=== PATIENT | male | born 1975 | race Caucasian/White ===

== ENCOUNTER 2023-01-05 11:57 | Inpatient (IN) | payer OTHER ==
[2023-01-05] MEDS ORDERED: FUROSEMIDE 40 MG/4 ML INJECTABLE VIAL IVPUSH ONE ×2 (12:32→17:52)
[2023-01-05] MEDS ORDERED: FUROSEMIDE 40 MG/4 ML INJECTABLE VIAL ONE (12:37)
[2023-01-05] MEDS ORDERED: DIPHTH,PERTUSS(ACELL),TET 0.5 ML DISP.SYRIN IM ONE ×2 (12:48→13:01)
[2023-01-05 13:12] LABS: VENOUS BASE EXCESS 0.9 mmol/L (-2-2); VENOUS O2 SATURATION 70.1 % (70-80); VENOUS PCO2 42.6 mmHg (38-52); VENOUS PH 7.402 (7.310-7.410)
[2023-01-05 13:15] LABS: BASO % 1.6 % (0-2.0); EOS % 1.3 % (0-4.5); HEMATOCRIT 40.2 % (35.4-49); HEMOGLOBIN 12.9 GM/dL (11.7-16.9); MCH 23.7 pg (25.7-33.7); MCHC 32.1 g/dl (32.0-35.9); MEAN CELL VOLUME 73.7 fl (80-96); MEAN PLT VOLUME 9.4 fl (7.5-11.1); MONO % 10.9 % (3.8-10.2); NEUT % 65.2 % (42.8-82.8); PLATELET COUNT 215 10^3/uL (134-434); RBC 5.45 M/mm3 (4.00-5.60); RDW 17.9 % (11.9-15.9); WHITE BLOOD COUNT 7.9 K/mm3 (4.0-10.0)
[2023-01-05 13:57] LABS: ALBUMIN 3.1 g/dl (3.4-5.0); CALCIUM 8.4 mg/dL (8.5-10.1)
[2023-01-05 13:58] LABS: BLOOD UREA NITROGEN 51.9 mg/dL (7-18)
[2023-01-05 14:02] LABS: TOT PROT 6.2 g/dl (6.4-8.2)
[2023-01-05] MEDS ORDERED: DEXTROSE 5%-0.45% SALINE 1,000 ML IV SCH (19:00)
[2023-01-05] MEDS: ATORVASTATIN CA 80 MG TABLET (FP) PO SCH (19:17)
[2023-01-05] MEDS: APIXABAN 5 MG TABLET PO SCH (22:47)
[2023-01-06 09:11] LABS: BASO % 0.7 % (0-2.0); EOS % 0.7 % (0-4.5); HEMATOCRIT 39.6 % (35.4-49); HEMOGLOBIN 12.7 GM/dL (11.7-16.9); LYMPH % 13.8 % (8-40); MCH 23.6 pg (25.7-33.7); MCHC 32.1 g/dl (32.0-35.9); MEAN CELL VOLUME 73.5 fl (80-96); MEAN PLT VOLUME 9.3 fl (7.5-11.1); MONO % 10.7 % (3.8-10.2); NEUT % 74.1 % (42.8-82.8); PLATELET COUNT 215 10^3/uL (134-434); RBC 5.38 M/mm3 (4.00-5.60); RDW 18.1 % (11.9-15.9); WHITE BLOOD COUNT 7.8 K/mm3 (4.0-10.0)
[2023-01-06 09:41] LABS: ALBUMIN 2.7 g/dl (3.4-5.0); BLOOD UREA NITROGEN 43.3 mg/dL (7-18); CALCIUM 7.7 mg/dL (8.5-10.1)
[2023-01-06 09:44] LABS: CREATININE 1.6 mg/dL (0.55-1.3)
[2023-01-06 09:46] LABS: BILIRUBIN,TOTAL 2.6 mg/dL (0.2-1); TOT PROT 5.4 g/dl (6.4-8.2)
[2023-01-06] MEDS: PANTOPRAZOLE 40 MG TABLET PO SCH (09:57)
[2023-01-06] MEDS: APIXABAN 5 MG TABLET PO SCH ×2 (09:57→21:52)
[2023-01-06] MEDS: FUROSEMIDE 40 MG/4 ML INJECTABLE VIAL IVPUSH SCH (09:57)
[2023-01-06] MEDS ORDERED: ENOXAPARIN NA (PORCINE) 40 MG/0.4 ML DISP.SYRIN SQ SCH (10:00)
[2023-01-06] MEDS ORDERED: ASPIRIN COATED 81 MG TABLET.EC PO SCH (10:00)
[2023-01-06] MEDS ORDERED: ONDANSETRON 4 MG/2 ML VIAL IVPUSH PRN (14:11)
[2023-01-06] MEDS: KCL 10 MEQ IVPB 10 MEQ/100 ML INFUS.BAG IVPB SCH ×3 (15:05→17:30)
[2023-01-06] MEDS: ATORVASTATIN CA 80 MG TABLET (FP) PO SCH (21:52)
[2023-01-07 07:41] LABS: BASO % 0.7 % (0-2.0); EOS % 3.3 % (0-4.5); HEMATOCRIT 40.9 % (35.4-49); LYMPH % 21.7 % (8-40); MCH 23.5 pg (25.7-33.7); MCHC 31.7 g/dl (32.0-35.9); MONO % 11.6 % (3.8-10.2); NEUT % 62.7 % (42.8-82.8); PLATELET COUNT 244 10^3/uL (134-434); RBC 5.53 M/mm3 (4.00-5.60); RDW 18.1 % (11.9-15.9); WHITE BLOOD COUNT 7.2 K/mm3 (4.0-10.0)
[2023-01-07 08:04] LABS: ALBUMIN 2.8 g/dl (3.4-5.0); BLOOD UREA NITROGEN 38.4 mg/dL (7-18)
[2023-01-07 08:07] LABS: CREATININE 1.5 mg/dL (0.55-1.3)
[2023-01-07 08:10] LABS: BILIRUBIN,TOTAL 2.7 mg/dL (0.2-1); TOT PROT 5.7 g/dl (6.4-8.2)
[2023-01-07] MEDS: PANTOPRAZOLE 40 MG TABLET PO SCH (09:52)
[2023-01-07] MEDS: APIXABAN 5 MG TABLET PO SCH ×2 (09:52→22:00)
[2023-01-07] MEDS: FUROSEMIDE 40 MG/4 ML INJECTABLE VIAL IVPUSH SCH (09:52)
[2023-01-07] MEDS ORDERED: CEFAZOLIN 1 GM in DEXTROSE 5%-WATER - 50 ML IVPB SCH (15:00)
[2023-01-07] MEDS: CEFAZOLIN 1 GM in DEXTROSE 5%-WATER - 50 ML IVPB SCH (16:50)
[2023-01-08] MEDS: CEFAZOLIN 1 GM in DEXTROSE 5%-WATER - 50 ML IVPB SCH ×3 (03:30→18:00)
[2023-01-08 09:03] LABS: BASO % 1.2 % (0-2.0); EOS % 3.1 % (0-4.5); HEMATOCRIT 42.1 % (35.4-49); HEMOGLOBIN 13.6 GM/dL (11.7-16.9); LYMPH % 27.1 % (8-40); MCH 23.6 pg (25.7-33.7); MCHC 32.4 g/dl (32.0-35.9); MEAN CELL VOLUME 72.8 fl (80-96); MEAN PLT VOLUME 8.7 fl (7.5-11.1); NEUT % 57.6 % (42.8-82.8); PLATELET COUNT 276 10^3/uL (134-434); RBC 5.78 M/mm3 (4.00-5.60); RDW 17.8 % (11.9-15.9); WHITE BLOOD COUNT 6.7 K/mm3 (4.0-10.0)
[2023-01-08 09:20] LABS: ALBUMIN 2.8 g/dl (3.4-5.0); BLOOD UREA NITROGEN 31.4 mg/dL (7-18)
[2023-01-08 09:21] LABS: CALCIUM 7.9 mg/dL (8.5-10.1)
[2023-01-08 09:24] LABS: CREATININE 1.3 mg/dL (0.55-1.3)
[2023-01-08 09:27] LABS: BILIRUBIN,TOTAL 2.7 mg/dL (0.2-1); TOT PROT 5.7 g/dl (6.4-8.2)
[2023-01-08] MEDS: APIXABAN 5 MG TABLET PO SCH ×2 (11:00→22:16)
[2023-01-08] MEDS: PANTOPRAZOLE 40 MG TABLET PO SCH (11:00)
[2023-01-08] MEDS: FUROSEMIDE 40 MG/4 ML INJECTABLE VIAL IVPUSH SCH (11:01)
[2023-01-08] MEDS ORDERED: POTASSIUM CHLORIDE ORAL LIQUID 20 MEQ/15 ML PO ONE (15:31)
[2023-01-08] MEDS ORDERED: FUROSEMIDE 40 MG/4 ML INJECTABLE VIAL IVPUSH ONE (17:00)
[2023-01-09] MEDS: CEFAZOLIN 1 GM in DEXTROSE 5%-WATER - 50 ML IVPB SCH ×3 (02:34→17:54)
[2023-01-09 07:30] LABS: BASO % 0.5 % (0-2.0); EOS % 2.8 % (0-4.5); HEMATOCRIT 41.3 % (35.4-49); HEMOGLOBIN 13.2 GM/dL (11.7-16.9); LYMPH % 21.7 % (8-40); MCH 23.3 pg (25.7-33.7); MCHC 32.1 g/dl (32.0-35.9); MEAN CELL VOLUME 72.8 fl (80-96); MEAN PLT VOLUME 8.1 fl (7.5-11.1); MONO % 10.5 % (3.8-10.2); NEUT % 64.5 % (42.8-82.8); PLATELET COUNT 271 10^3/uL (134-434); RBC 5.66 M/mm3 (4.00-5.60); RDW 18.2 % (11.9-15.9); WHITE BLOOD COUNT 6.7 K/mm3 (4.0-10.0)
[2023-01-09 07:56] LABS: ALBUMIN 2.6 g/dl (3.4-5.0); CALCIUM 7.8 mg/dL (8.5-10.1)
[2023-01-09 07:57] LABS: MAGNESIUM 1.5 mg/dL (1.8-2.4)
[2023-01-09 07:58] LABS: CREATININE 1.3 mg/dL (0.55-1.3)
[2023-01-09 08:00] LABS: BILIRUBIN,TOTAL 2.4 mg/dL (0.2-1); TOT PROT 5.4 g/dl (6.4-8.2)
[2023-01-09] MEDS: APIXABAN 5 MG TABLET PO SCH ×2 (10:05→22:11)
[2023-01-09] MEDS: FUROSEMIDE 40 MG/4 ML INJECTABLE VIAL IVPUSH SCH (10:05)
[2023-01-09] MEDS: PANTOPRAZOLE 40 MG TABLET PO SCH (10:05)
[2023-01-09] MEDS ORDERED: POTASSIUM CHLORIDE TABS 20 MEQ TABLET.ER (FP) PO ONE (11:43)
[2023-01-09] MEDS: MAGNESIUM SULFATE IN WATER 2 GM/50 ML IVPB IVPB SCH ×2 (12:10→14:21)
[2023-01-09] MEDS ORDERED: DOCUSATE SODIUM 100 MG CAPSULE (FP) PO ONE ×2 (22:30)
[2023-01-10] MEDS: CEFAZOLIN 1 GM in DEXTROSE 5%-WATER - 50 ML IVPB SCH ×3 (02:35→18:10)
[2023-01-10 08:24] LABS: ALBUMIN 2.7 g/dl (3.4-5.0); BLOOD UREA NITROGEN 23.5 mg/dL (7-18)
[2023-01-10 08:27] LABS: CREATININE 1.2 mg/dL (0.55-1.3)
[2023-01-10 08:28] LABS: BILIRUBIN,TOTAL 2.3 mg/dL (0.2-1)
[2023-01-10 08:29] LABS: TOT PROT 5.7 g/dl (6.4-8.2)
[2023-01-10] MEDS: POTASSIUM CHLORIDE TABS 20 MEQ TABLET.ER (FP) PO SCH (09:27)
[2023-01-10] MEDS: PANTOPRAZOLE 40 MG TABLET PO SCH (09:28)
[2023-01-10] MEDS: APIXABAN 5 MG TABLET PO SCH ×3 (09:28→22:32)
[2023-01-10] MEDS: FUROSEMIDE 40 MG/4 ML INJECTABLE VIAL IVPUSH SCH (09:28)
[2023-01-10 13:33] VITALS: BMI 30.2
[2023-01-10] MEDS: POLYETHYLENE GLYCOL (HEALTHYLAX) 3350 17 GM PACKET PO SCH ×2 (21:46→22:34)
[2023-01-11] MEDS: CEFAZOLIN 1 GM in DEXTROSE 5%-WATER - 50 ML IVPB SCH ×3 (03:35→17:35)
[2023-01-11 07:18] LABS: BASO % 1.2 % (0-2.0); HEMATOCRIT 37.6 % (35.4-49); HEMOGLOBIN 12.2 GM/dL (11.7-16.9); LYMPH % 19.3 % (8-40); MCH 23.5 pg (25.7-33.7); MCHC 32.4 g/dl (32.0-35.9); MEAN CELL VOLUME 72.4 fl (80-96); MEAN PLT VOLUME 8.3 fl (7.5-11.1); MONO % 12.1 % (3.8-10.2); NEUT % 65.4 % (42.8-82.8); PLATELET COUNT 253 10^3/uL (134-434); RBC 5.19 M/mm3 (4.00-5.60); RDW 17.8 % (11.9-15.9); WHITE BLOOD COUNT 7.8 K/mm3 (4.0-10.0)
[2023-01-11 07:44] LABS: ALBUMIN 2.6 g/dl (3.4-5.0); BLOOD UREA NITROGEN 16.5 mg/dL (7-18)
[2023-01-11 07:47] LABS: BILIRUBIN,TOTAL 2.7 mg/dL (0.2-1)
[2023-01-11 07:48] LABS: TOT PROT 5.5 g/dl (6.4-8.2)
[2023-01-11] MEDS: POLYETHYLENE GLYCOL (HEALTHYLAX) 3350 17 GM PACKET PO SCH ×2 (09:48→21:34)
[2023-01-11] MEDS: FUROSEMIDE 40 MG/4 ML INJECTABLE VIAL IVPUSH SCH (09:48)
[2023-01-11] MEDS: POTASSIUM CHLORIDE TABS 20 MEQ TABLET.ER (FP) PO SCH (09:48)
[2023-01-11] MEDS: PANTOPRAZOLE 40 MG TABLET PO SCH (09:49)
[2023-01-11 11:21] LABS: MAGNESIUM 1.8 mg/dL (1.8-2.4)
[2023-01-11 11:25] LABS: PHOSPHOROUS 2.4 mg/dL (2.5-4.9)
[2023-01-11] MEDS ORDERED: MAGNESIUM OXIDE 400 MG TABLET (FP) PO ONE (12:53)
[2023-01-11] MEDS ORDERED: HEPARIN NA (PORCINE) 5,000 UNITS/ML 1ML VIAL IVPUSH PRN ×2 (13:10)
[2023-01-11] MEDS ORDERED: HEPARIN SOD,PORK IN 0.45% NACL 25,000 UNITS/500 ML INFUS.BAG IVPB SCH (13:15)
[2023-01-11] MEDS: LISINOPRIL 10 MG TABLET PO SCH (14:01)
[2023-01-11] MEDS: NAPH,MB-DB/K PH,MBDB POWDER PACKET PO SCH ×2 (14:02→21:39)
[2023-01-11 14:47] LABS: CREATININE, URINE RANDOM < 13.0 mg/dL (30-150)
[2023-01-11] MEDS ORDERED: POTASSIUM CHLORIDE ORAL LIQUID 20 MEQ/15 ML PO ONE (16:31)
[2023-01-11] MEDS ORDERED: FUROSEMIDE 40 MG/4 ML INJECTABLE VIAL IVPUSH ONE (16:31)
[2023-01-11 16:53] LABS: INR 1.73 (0.83-1.09)
[2023-01-11 16:56] LABS: ACTIVATED PTT 33.2 SECONDS (25.2-36.5)
[2023-01-11 17:54] LABS: EPI CELLS 2 /uL (0-25.1); HYALINE CASTS 1 /uL (0-3.1); URINE APPEARANCE CLEAR; URINE BACTERIA 3 /uL (0-1359); URINE BILIRUBIN NEGATIVE (NEGATIVE); URINE COLOR DK YELLOW; URINE GLUCOSE (UA) NEGATIVE (NEGATIVE); URINE KETONE NEGATIVE (NEGATIVE); URINE LEUK ESTERASE NEGATIVE (NEGATIVE); URINE NITRITE NEGATIVE (NEGATIVE); URINE PROTEIN 1+ (NEGATIVE); URINE RBC 7 /uL (0-23.9); URINE UROBILINOGEN 4.0 E.U/dl mg/dL (0.2-1.0); URINE WBC 4 /uL (0-25.8)
[2023-01-12] MEDS: CEFAZOLIN 1 GM in DEXTROSE 5%-WATER - 50 ML IVPB SCH ×3 (03:30→17:14)
[2023-01-12] MEDS: NAPH,MB-DB/K PH,MBDB POWDER PACKET PO SCH ×3 (05:51→21:09)
[2023-01-12 08:12] LABS: ALBUMIN 2.6 g/dl (3.4-5.0); CALCIUM 8.2 mg/dL (8.5-10.1)
[2023-01-12 08:13] LABS: BLOOD UREA NITROGEN 22.3 mg/dL (7-18)
[2023-01-12 08:16] LABS: CREATININE 1.1 mg/dL (0.55-1.3)
[2023-01-12 08:17] LABS: BILIRUBIN,TOTAL 2.2 mg/dL (0.2-1); TOT PROT 5.8 g/dl (6.4-8.2)
[2023-01-12] MEDS: POLYETHYLENE GLYCOL (HEALTHYLAX) 3350 17 GM PACKET PO SCH ×2 (10:30→21:09)
[2023-01-12] MEDS: FUROSEMIDE 40 MG/4 ML INJECTABLE VIAL IVPUSH SCH (10:30)
[2023-01-12] MEDS: POTASSIUM CHLORIDE TABS 20 MEQ TABLET.ER (FP) PO SCH (10:30)
[2023-01-12] MEDS: PANTOPRAZOLE 40 MG TABLET PO SCH (10:30)
[2023-01-12] MEDS: LISINOPRIL 10 MG TABLET PO SCH (10:30)
[2023-01-13] MEDS: CEFAZOLIN 1 GM in DEXTROSE 5%-WATER - 50 ML IVPB SCH ×2 (01:59→09:08)
[2023-01-13] MEDS: NAPH,MB-DB/K PH,MBDB POWDER PACKET PO SCH ×2 (05:13→13:54)
[2023-01-13 06:39] LABS: HEMATOCRIT 37.6 % (35.4-49); HEMOGLOBIN 12.1 GM/dL (11.7-16.9); MCH 23.6 pg (25.7-33.7); MCHC 32.3 g/dl (32.0-35.9); MEAN PLT VOLUME 8.4 fl (7.5-11.1); PLATELET COUNT 262 10^3/uL (134-434); RBC 5.14 M/mm3 (4.00-5.60); RDW 18.3 % (11.9-15.9); WHITE BLOOD COUNT 7.8 K/mm3 (4.0-10.0)
[2023-01-13 07:09] LABS: CALCIUM 8.5 mg/dL (8.5-10.1)
[2023-01-13 07:10] LABS: ALBUMIN 2.6 g/dl (3.4-5.0); BLOOD UREA NITROGEN 22.3 mg/dL (7-18)
[2023-01-13 07:13] LABS: CREATININE 1.2 mg/dL (0.55-1.3)
[2023-01-13 07:14] LABS: BILIRUBIN,TOTAL 2.2 mg/dL (0.2-1); TOT PROT 5.6 g/dl (6.4-8.2)
[2023-01-13] MEDS: LISINOPRIL 10 MG TABLET PO SCH (09:07)
[2023-01-13] MEDS: PANTOPRAZOLE 40 MG TABLET PO SCH (09:07)
[2023-01-13] MEDS: POTASSIUM CHLORIDE TABS 20 MEQ TABLET.ER (FP) PO SCH (09:07)
[2023-01-13] MEDS: FUROSEMIDE 40 MG/4 ML INJECTABLE VIAL IVPUSH SCH (09:07)
[2023-01-13] MEDS: POLYETHYLENE GLYCOL (HEALTHYLAX) 3350 17 GM PACKET PO SCH (09:09)
[2023-01-13 09:37] VITALS: RESP 20
[2023-01-13] MEDS ORDERED: LISINOPRIL 10 MG TABLET PO SCH (10:00)
[2023-01-13 17:15] VITALS: BP 148/109; PULSE 117; TEMP 97.8
== END 2023-01-13 17:41 | disposition short-term general hospital (02) | DRG 682 ==
LOC: JER 11:57 → JERBED 13:00 → J4W 18:16
PROVIDERS: ADMIT Internal Medicine; ATTEND Internal Medicine
DX: N17.9 Acute kidney failure, unspecified (principal); I50.31 Acute diastolic (congestive) heart failure; K85.90 Acute pancreatitis without necrosis or infection, unspecified; L03.115 Cellulitis of right lower limb; L03.116 Cellulitis of left lower limb; I11.0 Hypertensive heart disease with heart failure; R74.8 Abnormal levels of other serum enzymes; D64.9 Anemia, unspecified; I48.0 Paroxysmal atrial fibrillation; R74.01 Elevation of levels of liver transaminase levels; N28.1 Cyst of kidney, acquired; E78.5 Hyperlipidemia, unspecified; K59.00 Constipation, unspecified; R73.03 Prediabetes; M79.81 Nontraumatic hematoma of soft tissue; E66.9 Obesity, unspecified; Z68.31 Body mass index [BMI] 31.0-31.9, adult; I34.0 Nonrheumatic mitral (valve) insufficiency
CPT/HCPCS: 0241U-QW; 36415; 71045-TC-FY; 74150-TC; 74177-TC; 76700-TC; 80048; 80053; 80061; 81003; 82103; 82150; 82570; 82803; 83036; 83516; 83690; 83735; 83880; 84100; 84156; 84443; 84484; 85025; 85027; 85610; 85730; 86038; 86704; 86705; 86708; 87517; 87522; 90715; 93005; 93010; 93306-TC; 94660; 99285-25; C9803-CS; Q9967; U0003; U0005